=== PATIENT | female | born 1960 | race Asian ===

== ENCOUNTER 2016-03-14 17:05 | Emergency (ER) | payer MEDICAID, OTHER ==
[~2016-03-14] VITALS: Ht 160 cm; Wt 56.8 kg
[2016-03-14] MEDS ORDERED: MAGNESIUM CITRATE 300 ML ORAL SOLUTION PO ONE (18:45)
[2016-03-14] MEDS ORDERED: SODIUM PHOS/SODIUM BIPHOS 133 ML ENEMA PR ONE (18:45)
[2016-03-14 21:04] LABS: APPEARANCE,URINE CLEAR (CLEAR); GLUCOSE, URINE (UA) 500 mg/dL (NEGATIVE); KETONES,URINE NEGATIVE (NEGATIVE); LEUKOCYTE ESTERASE ,URINE NEGATIVE (NEGATIVE); OCCULT BLOOD,URINE NEGATIVE (NEGATIVE); PH,URINE 5.5 (5.0-8.0); PROTEIN,URINE POS 1+ (NEGATIVE)
[2016-03-14 21:10] VITALS: BP 122/78
[2016-03-14 21:18] LABS: ADD UA MICROSCOPIC YES
[2016-03-14 22:00] LABS: SQUAMOUS EPITHELIAL CELL,UR Moderate /LPF (None Seen)
[2016-03-14 22:01] LABS: RBC,URINE 0-2 /HPF (0-2)
== END 2016-03-14 23:08 | disposition home or self-care (01) ==
LOC: EMS 17:07
DX: K59.00 Constipation, unspecified (principal); F15.10 Other stimulant abuse, uncomplicated; F17.210 Nicotine dependence, cigarettes, uncomplicated; E11.9 Type 2 diabetes mellitus without complications; Z88.6 Allergy status to analgesic agent
CPT/HCPCS: 99284; 99406

== ENCOUNTER 2017-10-10 11:05 | Emergency (ER) | payer OTHER ==
[~2017-10-10] VITALS: Ht 157.5 cm; Wt 56.8 kg
[2017-10-10] MEDS ORDERED: KETOROLAC TROMETHAMINE 10 MG TABLET PO ONE (12:30)
[2017-10-10] MEDS ORDERED: PERTUSS(ACELL),DIPH,TET VAC/PF 0.5 ML VIAL IM ONE (12:30)
[2017-10-10 14:46] VITALS: BP 104/66
== END 2017-10-10 14:47 | disposition home or self-care (01) ==
LOC: EMS 11:06
DX: S01.81XA Laceration without foreign body of other part of head, initial encounter (principal); S40.022A Contusion of left upper arm, initial encounter; E11.9 Type 2 diabetes mellitus without complications; Z88.8 Allergy status to other drugs, medicaments and biological substances; F17.210 Nicotine dependence, cigarettes, uncomplicated; Y04.0XXA Assault by unarmed brawl or fight, initial encounter; Y93.89 Activity, other specified; Y92.410 Unspecified street and highway as the place of occurrence of the external cause; Y99.8 Other external cause status
CPT/HCPCS: 12011; 90715; 99283